=== PATIENT | female | born 1960 | race Caucasian/White ===

== ENCOUNTER 2017-04-24 15:48 | Emergency (ER) | payer OTHER ==
[~2017-04-24] VITALS: Ht 167.6 cm; Wt 109.0 kg
[~2017-04-24 15:48] MED LIST: ASPIRIN325 MG PO; ATENOLOL100 MG PO; KLOR-CON M2020 MEQ PO; LEVO-T25 MCG PO; PROZAC20 MG PO; SIMVASTATIN40 MG PO
[2017-04-24 16:13] VITALS: BP 146/87
[2017-04-24 16:33] LABS: POINT-OF-CARE METER ID UU13113778; POINT-OF-CARE USER ID NUTJNM
== END 2017-04-24 17:45 | disposition left against medical advice (07) ==
LOC: EME 15:48
DX: R53.1 Weakness (principal); R25.8 Other abnormal involuntary movements; Z53.21 Procedure and treatment not carried out due to patient leaving prior to being seen by health care provider
CPT/HCPCS: 82948